=== PATIENT | female | born 1930 | race Caucasian/White ===

== ENCOUNTER 2017-09-05 10:53 | Inpatient (IN) | payer MEDICARE ==
[2017-09-05 11:37] LABS: Hematocrit 30.5 % (36.0-47.0); Mean Platelet Volume 6.7 fL (7.4-10.4); Red Blood Cell (RBC) Count 3.26 mill/uL (4.20-5.40); White Blood Cell (WBC) Count 19.9 thou/uL (4.8-10.8)
--- NOTE | 2017-09-05 11:48 | RAD ---
SINGLE VIEW OF THE CHEST: HISTORY: Left leg pain after fall. The patient was on a blood thinner during the fall. Hypotension. COMPARISON: 05/20/2017 FINDINGS: A single view of the chest shows a normal sized cardiomediastinal silhouette. There is no evidence of consolidation, mass, or pleural effusion. Increased interstitial markings are present. IMPRESSION: No evidence of acute cardiopulmonary disease. POS: [facility]
[2017-09-05 11:54] LABS: Band 1 % (5-11); Neutrophil 75 % (42-75)
[2017-09-05 11:59] LABS: ALT (SGPT) 12 U/L (8-55); AST (SGOT) 17 U/L (5-34); Alkaline Phosphatase 86 U/L (40-150); Anion Gap 12 mmol/L (10-20); BUN (Urea Nitrogen) 14 mg/dL (9.8-20.1); Bilirubin, Total 0.6 mg/dL (0.2-1.2); CK (CPK) 44 U/L (29-168); Calc. Creatinine Clearance 0 mL/min (70-130); Calcium 9.1 mg/dL (7.8-10.44); Carbon Dioxide 30 mmol/L (23-31); Chloride 100 mmol/L (98-107); Estimated GFR-MDRD 63; Globulin 3.6 g/dL (2.4-3.5); Protein, Total 7.2 g/dL (6.0-8.3)
[2017-09-05 12:05] LABS: Troponin I Less than 0.010 ng/mL (< 0.028)
[2017-09-05] MEDS ORDERED: Vancomycin HCl 1.25 GM in Sodium Chloride 0.9% 250 ML 250 ML IVPB SCH (12:15)
[2017-09-05 12:25] LABS: Lactic Acid - Sepsis 1.4 mmol/L (0.5-2.2)
[2017-09-05 12:48] LABS: Bilirubin Negative (Negative); Blood, Urine Large (Negative); Glucose, Urine (Dipstick) Negative (Negative); Ketone, Urine Negative (Negative); Nitrite Negative (Negative); Protein, Urine (Dipstick) Negative (Neg-Trace); Urobilinogen 0.2 mg/dL (0.2-1.0)
[2017-09-05 12:54] LABS: Bacteria/HPF 3+ HPF (None Seen); Hyaline Casts/LPF NONE SEEN LPF (0-3 Hyaline)
[2017-09-05] MEDS ORDERED: Piperacillin/Tazobactam 4.5 GM, Admixture Fee 1 EACH in Sodium Chloride 0.9% 100 ML IVPB SCH (13:00)
[2017-09-05] MEDS ORDERED: traMADol HCl 50 MG TAB ONE (13:10)
[2017-09-05] MEDS ORDERED: Adacel (T-DAP) 0.5 ML VIAL ONE (15:05)
[2017-09-05] MEDS ORDERED: Potassium Chloride 40 MEQ in Premix Bag 1 BAG IVPB SCH (15:30)
[2017-09-05] MEDS ORDERED: Potassium Chloride 40 MEQ in Sodium Chloride 0.9% 250 ML 250 ML IVPB SCH (15:45)
[2017-09-05 16:06] VITALS: BMI 33.9
[2017-09-05] MEDS ORDERED: traMADol HCl 50 MG TAB PO PRN (16:07)
[2017-09-05] MEDS: Sodium Chloride 0.9% 1,000 ML IV SCH ×2 (17:06→23:34)
--- NOTE | 2017-09-05 18:00 | RAD ---
FOUR VIEWS LEFT FORELEG 09/05/17 INDICATION: Left leg cellulitis. Rule out osteomyelitis. FINDINGS: There is diffuse osteopenia. No definite acute osseous abnormality is evident. Heterotopic ossificat ion seen adjacent to the Achilles insertion. There is prominent soft tissue swelling of the left for eleg. IMPRESSION: Diffuse osteopenia. No definite acute osseous abnormality. Enthesopathic changes seen adjacent to th e calcaneus as well as the fibular head. POS: [facility]
--- NOTE | 2017-09-05 18:06 | RAD ---
PORTABLE AP CHEST X-RAY 09/05/17 HISTORY: Sepsis. COMPARISON: 09/05/17 at 11:26 hours. FINDINGS: The cardiac silhouette and pulmonary vasculature are within normal limits for the portable technique of the study. Thoracic aorta is ectatic and partially calcified. Again noted is linear atelectasis versus scarring at each lung base; however, there is improved aeration at the right lung base sugges ting linear density on the right due to atelectasis. No pneumothorax or pleural effusion seen. There is osteopenia. No other interval change. IMPRESSION: 1. Atelectasis versus scarring left lung base. There is otherwise no acute cardiopulmonary proc ess. 2. Osteopenia. POS: [facility]
[2017-09-05] MEDS: Ondansetron ODT 4 MG TAB PO PRN (18:09)
--- NOTE | 2017-09-05 18:18 | ULT ---
ULTRASOUND OF THE SOFT TISSUES OF THE LEFT FORELE09/05/17 INDICATION: Cellulitis, rule out fluid collection. FINDINGS: There is a 2.3 x 0.8 cm heterogeneous nonvascular fluid collection in the subcutaneous tissues of th e anterior left foreleg. Adjacent to this region is an additional 2 x 1 cm collection. The findings are suspicious for small hematoma. Superimposed infection cannot be entirely excluded. IMPRESSION: Subcutaneous fluid collections within the anterior left calf and in the region of trauma suspicious for small hematomas. Superimposed infection cannot be entirely excluded. POS: [facility]
[2017-09-05] MEDS: Piperacillin/Tazobactam 3.375 GM in Sodium Chloride 0.9% 100 ML IVPB SCH (21:08)
[2017-09-05] MEDS: Vancomycin HCl 500 MG in Sodium Chloride 0.9% 100 ML IVPB SCH (23:35)
--- NOTE | 2017-09-06 00:14 | HP-2 ---
DATE OF CONSULTATION: 09/05/2017 CODE STATUS: FULL. PRIMARY CARE PHYSICIAN: Ragini Fisher MD ATTENDING: Maddie Givens MD RESIDENT: Ragini Fisher MD HISTORIAN: Patient. CHIEF COMPLAINT: Weakness. HISTORY OF PRESENT ILLNESS: Patient is an 87-year-old pleasant female with past medical history of hypertension and history of DVT, previously on Eliquis who presents with weakness. Patient states that she was sitting in her recliner a few days ago and her cat got caught in the middle of it and subsequently scratched her. She states that she has had worsening redness and some weeping of her left lower extremity. The patient does have home health and has been receiving wound care from her home health nurse. However, today the patient states that she became significantly more weak and hypotensive. Of note, the patient had a right common femoral DVT few months ago and was placed on Eliquis. The patient completed her 3-month course yesterday. She also endorses fevers that started today as well as decreased appetite. Denies any chills, night sweats, cough, congestion, shortness of breath, chest pain, nausea , vomiting, diarrhea, dysuria, or polyuria. In the ER, the patient was given Zosyn 4.5 grams IV, vancomycin 15 mcg/kg IV, 1 liter bolus of normal saline, tramadol 50 mg, normal saline 30 mL per hour. PAST MEDICAL HISTORY: 1. Hypertension (previously on lisinopril, but was stopped about 1 month ago). 2. Bilateral venous stasis. 3. History of right common femoral DVT and completed anticoagulation with Eliquis on 09/04/2017. 4. Right hip osteoarthritis. PAST SURGICAL HISTORY: 1. Right hip open reduction internal fixation. 2. Appendectomy. 3. Hysterectomy. 4. Tonsillectomy. ALLERGIES: No known drug allergies. MEDICATIONS: 1. Lasix 40 mg p.o. daily. 2. Vitamin D3 of 1000 units daily. 3. Tramadol 50 mg p.o. q.6 hours p.r.n. for pain. 4. Eliquis completed course on 09/04/2017. FAMILY HISTORY: Not significant. SOCIAL HISTORY: Ten pack year, but currently not smoking. Alcohol none. Drugs none. REVIEW OF SYSTEMS: A 12-point review of systems including general, eyes, ENT, respiratory, CV, GI, , skin, musculoskeletal, neuro and psych are all negative except for pertinent positives mentioned in the HPI. PHYSICAL EXAMINATION: VITAL SIGNS: Blood pressure 86/58, pulse 112, respiratory rate 20, temperature 101.5, pulse oximetry 97% on room air, weight 82 kg. GENERAL: Alert, oriented x4, in no apparent distress. Appropriately interactive. EYES: PERRLA, EOMI. ENT: Nasal mucosa normal. Oropharynx within normal. NECK: Supple. No lymphadenopathy. CARDIOVASCULAR: Regular rate and rhythm. 2/6 systolic murmur. Radial pulses 2 +. RESPIRATORY: Clear to auscultation bilaterally, normal effort. SKIN: A 22 x 16 cm erythema located at her left lower extremity with a small hematoma and slight fluctuance as well as multiple 2 mm abrasions from cat scratches. ABDOMEN: Soft, nontender to palpation. Bowel sounds x4. EXTREMITIES: No cyanosis. 1+ pitting edema bilaterally. MUSCULOSKELETAL: Structure within normal, tone within normal limits. NEUROLOGIC: No focal deficits. Sensation within normal. PSYCHIATRIC: Appropriate. LABORATORY AND IMAGING DATA: 1. White count 19.9, 1% band, 25% neutrophils, hemoglobin 9.9, hematocrit 30.5, MCV 93.6, platelets 386. 2. Sodium 139, potassium 3.2, chloride 100, bicarbonate 30, BUN 14, creatinine 0.85, glucose 117. 3. Calcium 9.1. Serum total protein 7.2, albumin 3.6, AST 17, ALT 12, alkaline phosphatase 86, total bilirubin 0.6. 4. CK 44, CK-MB 0.9, troponin less than 0.01. 5. UA specific gravity 1.02, blood large, leukocyte esterase large, nitrite negative, ketone negative, glucose negative, red blood cells 7-10, white blood cells 7-10, bacteria 3+, squamous 4-6. 6. EKG, sinus tachycardia. Chest x-ray, no acute process. ASSESSMENT AND PLAN: An 87-year-old female who presents with: 1. Severe sepsis secondary to left lower extremity cellulitis. Upon presentation to the ER, the patient was hypotensive with 86/58, tachycardic to 112, and febrile to 101.5. The patient was fluid resuscitated with 3 liter bolus of normal saline with improvement. Currently, patient's blood pressures in the low 100s, which is at her baseline. The patient was started on vancomycin and Zosyn for cellulitis and we will continue these antibiotics. Blood and urine cultures are pending. We will continue normal saline at 200 mL an hour. 2. Left lower extremity cellulitis with hematoma secondary to cat scratch. We will continue patient on Zosyn and we will continue vancomycin until blood cultures are negative. Of note, patient was given Tdap vaccine in the ER. We will obtain an ESR and x-ray of the left lower extremity and soft tissue ultrasound to rule out fluid collection/abscess and possible osteo. Of note, the patient has history of right DVT and on Eliquis, which is likely contributing to significant erythema and hematoma. 3. Hypokalemia. We will provide supplementation and monitor. 4. History of right deep venous thrombosis. Patient completed Eliquis and will not resume medication. 5. Hypertension. The patient is currently only on Lasix and was previously on lisinopril, but was discontinued a month ago. 6. Diet: Heart healthy. 7. Prophylaxis. Lovenox. 8. Code status: FULL. DISPOSITION AND LENGTH OF HOSPITAL STAY: More than 2 midnights. Symptomatic medications will be provided. History and physical exam as well as management discussed with Dr. Givens. [facility]
[2017-09-06] MEDS ORDERED: Vancomycin HCl 1.25 GM in Sodium Chloride 0.9% 250 ML 250 ML IVPB SCH (01:30)
[2017-09-06] MEDS: Piperacillin/Tazobactam 3.375 GM in Sodium Chloride 0.9% 100 ML IVPB SCH ×4 (02:13→20:19)
[2017-09-06] MEDS: Sodium Chloride 0.9% 1,000 ML IV SCH ×4 (02:13→20:23)
[2017-09-06 05:55] LABS: Band 1 % (5-11); Hematocrit 23.9 % (36.0-47.0); Mean Platelet Volume 7.3 fL (7.4-10.4); Neutrophil 76 % (42-75); Red Blood Cell (RBC) Count 2.51 mill/uL (4.20-5.40); White Blood Cell (WBC) Count 8.9 thou/uL (4.8-10.8)
[2017-09-06 06:39] LABS: Anion Gap 14 mmol/L (10-20); BUN (Urea Nitrogen) 10 mg/dL (9.8-20.1); Calc. Creatinine Clearance 78 mL/min (70-130); Calcium 7.3 mg/dL (7.8-10.44); Carbon Dioxide 19 mmol/L (23-31); Chloride 110 mmol/L (98-107); Estimated GFR-MDRD 73
--- NOTE | 2017-09-06 08:42 | PDOC.FM ---
- Subjective Subjective: Pt reports doing better this morning. Says she is eating. Denies any nausea, vomiting, diarrhea, constipation. Denies any fevers or chills overnight. Reports pain doing better in her L. leg. No other acute events overnight. - Objective MAR Reviewed: Yes Vital Signs & Weight: Vital Signs (12 hours) Temp Pulse Resp BP Pulse Ox 09/06/17 08:00 98.2 F 81 20 95 09/06/17 07:50 98.2 F 81 20 90/59 L 95 09/06/17 04:00 98.3 F 80 18 93/55 L 94 L 09/06/17 00:00 98.1 F 81 20 91/56 L 99 Weight Weight 95.254 kg I&O: 09/05/17 09/06/17 09/07/17 06:59 06:59 06:59 Intake Total 220 Balance 220 Result Diagrams: 09/06/17 04:38 09/06/17 04:38 Radiology Reviewed by me: Yes Radiology: Soft Tissue U/S: subq fluid collection w/ anterior L. calf and in the region of trauma suspicious for small hematomas. Superimposed infection cannot be entirely excluded. - <Hector Arzola - Last Filed: 09/06/17 08:41> - Objective Vital Signs & Weight: Vital Signs (12 hours) Temp Pulse Resp BP Pulse Ox 09/06/17 08:00 98.2 F 81 20 95 09/06/17 07:50 98.2 F 81 20 90/59 L 95 09/06/17 04:00 98.3 F 80 18 93/55 L 94 L 09/06/17 00:00 98.1 F 81 20 91/56 L 99 Weight Weight 210 lb I&O: 09/05/17 09/06/17 09/07/17 06:59 06:59 06:59 Intake Total 220 Balance 220 Result Diagrams: 09/06/17 04:38 09/06/17 04:38 <Laurent Mancia - Last Filed: 09/06/17 10:47> Phys Exam - Physical Examination HEENT: moist MMs, oral pharynx no lesions Neck: no nodes, no JVD Respiratory: no wheezing, no rales, no rhonchi, clear to auscultation bilateral Cardiovascular: RRR, no significant murmur, no rub Gastrointestinal: soft, non-tender, no distention, positive bowel sounds Musculoskeletal: pulses present, edema present Edema in both LE. non pitting. Non painful to palpation Redness regressing in L. leg. bloody drainage noted from wound sites Neurological: non-focal, normal sensation Lymphatic: no nodes Psychiatric: normal affect, A&O x 3 Skin: no rash Deviation from normal: Redness and venostastasis noted in LE. L. leg mildly swollen <Hector Arzola - Last Filed: 09/06/17 08:41> Dx/Plan (1) Cellulitis of leg, left Code(s): L03.116 - CELLULITIS OF LEFT LOWER LIMB Status: Acute Plan: Due to cat scratch. Will await blood cx. Will continue on IV abx for now. Blood cx-NGTD Urine cx-prelim shows Gram Negative Portillo. Will await sensitivities -On vanc and zosyn for now. Cellulitis improving -WBC count down to 8.9. Will continue to follow with CBC -ESR and Lactic Acid normal -Vital signs stable. No fevers overnight. (2) HTN (hypertension) Code(s): I10 - ESSENTIAL (PRIMARY) HYPERTENSION Status: Acute Plan: Lasix being held at this time. BP stable, A little low. (3) Hypokalemia Code(s): E87.6 - HYPOKALEMIA Status: Acute Plan: K Improved to 3.6 today -Will continue to monitor with daily bmp and replace as needed. <Hector Arzola - Last Filed: 09/06/17 08:41> Attending Addendum - Attending Addendum I personally evaluated the patient and discussed the management with Dr. Arzola I agree with the History, Examination, Assessment and Plan documented above with any addition or exceptions noted below. Pleasant 87 year old with cellulitis in her left leg after a cat scratch. She is responding to Vancomycin and Zosyn. Redness and swelling are better. She does not have adenopathy in her groin. We will check a Borrelia serology as well to make sure she doesn't need doxycycline. <Laurent Mancia - Last Filed: 09/06/17 10:47>
[2017-09-06] MEDS: Enoxaparin Sodium 40 MG/0.4 ML SYRINGE SC SCH (09:24)
[2017-09-06] MEDS: Vancomycin HCl 500 MG in Sodium Chloride 0.9% 100 ML IVPB SCH (12:24)
[2017-09-06] MEDS: Ondansetron ODT 4 MG TAB PO PRN (17:31)
[2017-09-07 00:11] LABS: Vancomycin, Trough 8.3 ug/mL
[2017-09-07] MEDS ORDERED: Vancomycin HCl 1.25 GM in Sodium Chloride 0.9% 250 ML 250 ML IVPB SCH (01:00)
[2017-09-07] MEDS: Vancomycin HCl 500 MG in Sodium Chloride 0.9% 100 ML IVPB SCH (01:21)
[2017-09-07] MEDS: Piperacillin/Tazobactam 3.375 GM in Sodium Chloride 0.9% 100 ML IVPB SCH ×2 (01:30→08:29)
[2017-09-07] MEDS: Sodium Chloride 0.9% 1,000 ML IV SCH (04:54)
[2017-09-07 05:43] LABS: Mean Platelet Volume 6.8 fL (7.4-10.4); Red Blood Cell (RBC) Count 2.63 mill/uL (4.20-5.40); White Blood Cell (WBC) Count 7.9 thou/uL (4.8-10.8)
[2017-09-07 05:48] LABS: Band 3 % (5-11); Neutrophil 72 % (42-75)
[2017-09-07 05:51] LABS: Anion Gap 10 mmol/L (10-20); BUN (Urea Nitrogen) 6 mg/dL (9.8-20.1); Calc. Creatinine Clearance 87 mL/min (70-130); Calcium 7.8 mg/dL (7.8-10.44); Carbon Dioxide 19 mmol/L (23-31); Chloride 113 mmol/L (98-107); Estimated GFR-MDRD 83
[2017-09-07] MEDS ORDERED: Potassium Chloride 20 MEQ TAB PO SCH (06:30)
--- NOTE | 2017-09-07 08:03 | PQF ---
CLINICAL DOCUMENTATION IMPROVEMENT CLARIFICATION FORM: ICD-10 Updated PLEASE DO AN ADDENDUM TO THE PROGRESS NOTE WITH ANY DOCUMENTATION UPDATES OR ADDITIONS AND CARRY THROUGH TO DC SUMMARY. THANK YOU. DATE: 09/07 ATTN: DR. LUIS EDUARDO GODFREY/ DR. MICHELLE KAISER Please exercise your independent, professional judgment in responding to the clarification form. Clinical indicators are provided on the bottom of this form for your review Please check appropriate box(s): [ x] Associated Diagnosis: __Antibiotics for cellulits cover UTI [ ] Other diagnosis [ ] Unable to determine In addition, please specify: Present on Admission (POA): [ ] Yes [ ] No [ ] Unable to determine For continuity of documentation, please document condition throughout progress notes and discharge summary. Thank You. CLINICAL INDICATORS - SIGNS / SYMPTOMS/ LABS are present in the medical record: URINALYSIS 09/05: LARGE BLOOD, LARGE LEUKOCYTE ESTERASE, WBC 7-10, 3+ BACTERIA URINE CULTURE: E COLI RISK FACTORS: ADVANCED AGE INCONTINENT (WEARS DIAPERS) TREATMENT: IV ANTIBIOTICS FOR LLE CELLULITIS (VANCOMYCIN & ZOSYN 09/05 - PRESENT) IVF (NS 09/05 - PRESENT) THANK YOU! Liya (This form is maintained as a part of the permanent medical record) 2014 [employer]. All Rights Reserved Liya Ayala RN, BSN [email or web address] Office: [phone] [facility]
--- NOTE | 2017-09-07 08:57 | PDOC.FM ---
- Subjective Subjective: Pt doing alright this morning. States she did not feel as well yesterday. Denies fevers and chills. Says she wasn't able to eat her breakfast this morning. Says she has been getting up with PT. She is tolerating abx - Objective Vital Signs & Weight: Vital Signs (12 hours) Temp Pulse Resp BP Pulse Ox 09/07/17 07:27 98.1 F 91 16 135/83 99 09/07/17 04:35 98.2 F 99 18 121/80 98 09/07/17 00:24 97.9 F 99 22 H 139/88 98 Weight Admit Weight 95.254 kg Weight 95.254 kg I&O: 09/06/17 09/07/17 09/08/17 06:59 06:59 06:59 Intake Total 220 2120 Balance 220 2120 Result Diagrams: 09/07/17 04:48 09/07/17 04:48 Radiology Reviewed by me: Yes Radiology: Soft Tissue U/S: subq fluid collection w/ anterior L. calf and in the region of trauma suspicious for small hematomas. Superimposed infection cannot be entirely excluded. - <Hector Arzola - Last Filed: 09/07/17 08:59> - Objective Vital Signs & Weight: Vital Signs (12 hours) Temp Pulse Resp BP Pulse Ox 09/07/17 07:27 98.1 F 91 16 135/83 99 09/07/17 04:35 98.2 F 99 18 121/80 98 09/07/17 00:24 97.9 F 99 22 H 139/88 98 Weight Admit Weight 210 lb Weight 210 lb I&O: 09/06/17 09/07/17 09/08/17 06:59 06:59 06:59 Intake Total 220 2120 Balance 220 2120 Result Diagrams: 09/07/17 04:48 09/07/17 04:48 <Laurent Mancia - Last Filed: 09/07/17 11:22> Phys Exam - Physical Examination HEENT: PERRLA, moist MMs Neck: no nodes, supple Respiratory: no wheezing, no rales, no rhonchi, clear to auscultation bilateral Cardiovascular: RRR, no significant murmur Gastrointestinal: soft, non-tender, no distention, positive bowel sounds Chronic edema noted in both legs bilaterally Wound is well dressed at this time. No drainage. Swelling improved Neurological: non-focal, normal sensation Psychiatric: normal affect, A&O x 3 Skin: no rash <Hector Arzola - Last Filed: 09/07/17 08:59> Dx/Plan (1) Cellulitis of leg, left Code(s): L03.116 - CELLULITIS OF LEFT LOWER LIMB Status: Acute Plan: Due to cat scratch. Will await blood cx. Will continue on IV abx for now. Bartonella Ab panel pending Blood cx-NGTD Urine cx-prelim shows Gram Negative Portillo. sensitive to current abx regimen -On vanc and zosyn for now. Cellulitis improving -WBC count down to 7.9. Will continue to follow with CBC -ESR and Lactic Acid normal -Vital signs stable. No fevers overnight. -Will possibly switch to oral abx today once cultures grow for 48 hours. Pt ill yesterday. Somewhat weak. Will plan on keeping her today to continue to monitor and work with PT (2) HTN (hypertension) Code(s): I10 - ESSENTIAL (PRIMARY) HYPERTENSION Status: Acute Plan: Lasix being held at this time. BP stable. (3) Hypokalemia Code(s): E87.6 - HYPOKALEMIA Status: Acute Plan: K 3.4 today -Replaced today and will continue to monitor <Hector Arzola - Last Filed: 09/07/17 08:59> Attending Addendum - Attending Addendum I personally evaluated the patient and discussed the management with Dr. Arzola I agree with the History, Examination, Assessment and Plan documented above with any addition or exceptions noted below. Her leg is better. We plan to start oral antibiotics today for this and her E. Coli UTI. She is complaining of shortness of breath and probably is fluid overloaded. She likely has some diastolic dysfunction and didn't tolerate the fluids. We are stopping her IV and will give her a one time dose of Lasix. <Laurent Mancia - Last Filed: 09/07/17 11:22>
[2017-09-07] MEDS ORDERED: Vancomycin HCl 1 GM in Premix Bag 1 BAG IVPB SCH (09:00)
[2017-09-07] MEDS ORDERED: Acetaminophen 325 MG TAB PO SCH (09:15)
[2017-09-07] MEDS: Enoxaparin Sodium 40 MG/0.4 ML SYRINGE SC SCH (10:02)
[2017-09-07] MEDS: Ondansetron ODT 4 MG TAB PO PRN (12:43)
[2017-09-07] MEDS ORDERED: Furosemide 40 MG/4 ML VIAL SLOW IVP SCH (14:00)
[2017-09-07] MEDS: Cephalexin 250 MG CAP PO SCH (20:22)
[2017-09-07] MEDS: Doxycycline 100 MG CAP PO SCH (20:22)
[2017-09-08 05:32] LABS: Anion Gap 9 mmol/L (10-20); BUN (Urea Nitrogen) Less than 4 mg/dL (9.8-20.1); Calc. Creatinine Clearance 91 mL/min (70-130); Calcium 8.5 mg/dL (7.8-10.44); Carbon Dioxide 26 mmol/L (23-31); Chloride 108 mmol/L (98-107); Estimated GFR-MDRD 88
[2017-09-08 05:42] LABS: Hematocrit 26.7 % (36.0-47.0); Mean Platelet Volume 6.6 fL (7.4-10.4); Neutrophil 76 % (42-75); Red Blood Cell (RBC) Count 2.88 mill/uL (4.20-5.40); White Blood Cell (WBC) Count 8.9 thou/uL (4.8-10.8)
[2017-09-08] MEDS ORDERED: Potassium Chloride 20 MEQ TAB PO SCH (06:15)
--- NOTE | 2017-09-08 07:05 | PDOC.FM ---
- Subjective Subjective: Pt doing better this morning. Only reports having a cough yesterday and now just having an irritated throat. Denies any fevers, chills. Denies any nausea or vomiting. Denies any other sx's at this time. - Objective MAR Reviewed: Yes Vital Signs & Weight: Vital Signs (12 hours) Temp Pulse Resp BP Pulse Ox 09/08/17 04:00 98.1 F 91 18 135/82 96 09/08/17 00:00 98.3 F 96 18 142/107 H 97 09/07/17 20:00 97.8 F 93 16 99 Weight Admit Weight 95.254 kg Weight 95.254 kg I&O: 09/07/17 09/08/17 09/09/17 06:59 06:59 06:59 Intake Total 2119 1400 Balance 2119 1400 Result Diagrams: 09/08/17 04:35 09/08/17 04:35 Radiology Reviewed by me: Yes (No new images ) <Hector Arzola - Last Filed: 09/08/17 07:03> - Objective Vital Signs & Weight: Vital Signs (12 hours) Temp Pulse Resp BP Pulse Ox 09/08/17 07:45 98.5 F 101 H 20 155/94 H 91 L 09/08/17 04:00 98.1 F 91 18 135/82 96 09/08/17 00:00 98.3 F 96 18 142/107 H 97 Weight Admit Weight 210 lb Weight 210 lb I&O: 09/07/17 09/08/17 09/09/17 06:59 06:59 06:59 Intake Total 2119 1400 Balance 2119 1400 Result Diagrams: 09/08/17 04:35 09/08/17 04:35 <Laurent Mancia - Last Filed: 09/08/17 11:04> Phys Exam - Physical Examination HEENT: PERRLA, moist MMs, oral pharynx no lesions Neck: no nodes, supple Respiratory: no wheezing, no rales, no rhonchi, clear to auscultation bilateral Cardiovascular: RRR, no significant murmur, no rub Gastrointestinal: soft, non-tender, no distention, positive bowel sounds Musculoskeletal: pulses present Non pitting edema present. Wound dressed at this time. No excessive drainage noted. Neurological: non-focal, normal sensation Psychiatric: normal affect, A&O x 3 Skin: no rash <Hector Arzola - Last Filed: 09/08/17 07:03> Dx/Plan (1) Cellulitis of leg, left Code(s): L03.116 - CELLULITIS OF LEFT LOWER LIMB Status: Acute Plan: Due to cat scratch. Will await blood cx. Will continue on IV abx for now. Bartonella Ab panel pending Blood cx-NGTD for 48 hrs Urine cx-prelim shows Gram Negative Portillo. sensitive to current abx regimen -D/C vanc and zosyn yesterday. Switched to Keflex and Doxycycline for MRSA coverage. Cellulitis improving -WBC resolved. Will continue to follow with CBC -ESR and Lactic Acid normal -Vital signs stable. No fevers overnight. -Pt feeling better today and likely ready to go home today. -Pt reports cough last night. Will give tessalon perles for relief. (2) HTN (hypertension) Code(s): I10 - ESSENTIAL (PRIMARY) HYPERTENSION Status: Acute Plan: Lasix restarted yesterday BP stable. (3) Hypokalemia Code(s): E87.6 - HYPOKALEMIA Status: Acute Plan: K 3.4 today -Replaced today and will continue to monitor <Hector Arzola - Last Filed: 09/08/17 07:03> Attending Addendum - Attending Addendum I personally evaluated the patient and discussed the management with Dr. Arzola I agree with the History, Examination, Assessment and Plan documented above with any addition or exceptions noted below. Patient is doing well today. She had some fluid overload yesterday which resolved after Lasix. He leg looks good. We are sending her home today on doxycycline and cephazolin. FU in clinic with Dr. Fisher. <Laurent Mancia - Last Filed: 09/08/17 11:04>
[2017-09-08] MEDS ORDERED: Benzonatate 100 MG CAP PO PRN (07:08)
[2017-09-08 08:24] LABS: Vancomycin, Trough 11.4 ug/mL
[2017-09-08] MEDS ORDERED: Furosemide 40 MG/4 ML VIAL SLOW IVP SCH (09:00)
[2017-09-08] MEDS ORDERED: Furosemide 20 MG TAB PO SCH (09:00)
[2017-09-08] MEDS: Cephalexin 250 MG CAP PO SCH (09:08)
[2017-09-08] MEDS: Enoxaparin Sodium 40 MG/0.4 ML SYRINGE SC SCH (09:08)
[2017-09-08] MEDS: Doxycycline 100 MG CAP PO SCH (09:08)
[2017-09-08 11:56] VITALS: BP 132/84; TEMP 98.6
--- NOTE | 2017-09-10 10:21 | DIS-2 ---
DATE OF ADMISSION: 09/05/2017 DATE OF DISCHARGE: 09/08/2017 RESIDENT: Hector Arzola M.D., PGY-1 ADMITTING ATTENDING: Maddie Givens M.D. DISCHARGE ATTENDING: Laurent Mancia M.D. CONSULTATIONS: The Wound Care team was consulted. PROCEDURES: None. IMAGIN. She got a chest x-ray on 09/05/2017, which showed no evidence of acute cardiopulmonary disease. She got a repeat chest x-ray on 09/05/2017, which showed atelectasis versus scarring in the left don ng base. There is otherwise no acute cardiopulmonary process. 2. Osteopenia on 09/05/2017, she had a soft tissue ultrasound which showed subcu fluid collections within the anterior left calf and in the region of trauma suspicious for small hematoma superimposed infection cannot be entirely excluded, and then she also got a tibia and fibula x-ray on the , d iffuse osteopenia, no definite acute osseous abnormality and enthesopathic changes seen adjacent to the calcaneus as well as the fibular head. PRIMARY DIAGNOSES: 1. Left leg lower cellulitis with drainage. 2. Hypertension. 3. Hypokalemia. 4. She had severe sepsis secondary to the left lower extremity cellulitis with a hematoma. SECONDARY DIAGNOSIS: She has had a history of right deep vein thrombosis and completed her course o f Eliquis. DISCONTINUED MEDICATIONS: Vancomycin and Zosyn and Zofran. DISCHARGE MEDICATIONS: Keflex 500 mg p.o. q.12 hours and doxycycline 100 mg p.o. b.i.d., and furose mide 20 mg p.o. daily, and tramadol 1 to 2 tabs p.o. q.i.d. HISTORY OF PRESENT ILLNESS AND BRIEF HOSPITAL COURSE: This is an 87-year-old female who came in sta ting that she got stuck in her recliner ended up scratching her on the leg. She started noticing re dness and swelling in the left lower extremity. She does have home health and was receiving wound c are, but however, the patient kept getting more weak, reported having chills the day before admissio n and stating that she was having some nausea as well. She denied any fevers. She did report that she was also having decreased appetite. Upon presentation in the ER, the patient was hypotensive wi th a blood pressure of 86/58, tachycardic to 112 and febrile 101.5. The patient was resuscitated wi th 3 liters of fluid bolus, which helped her blood pressures improved to the low 100s, which was her baseline. We then started on vancomycin and Zosyn for the cellulitis and continued these antibioti cs for the next few days. Blood and urine cultures were obtained. Blood cultures never grew out an ything; no growth to date for 48 hours. Urine culture did grow out E. coli which was sensitive to Z osyn and then further sensitive to cephalosporins. Upon discharge, her UA showed a large leukocyte esterase, 7-10 white blood cells and 3+ bacteria. On admission, her white blood cell count was 19.9 . Her hemoglobin was 9.9 and would kind of trend down and up from 7.9 to 8.0 to 8.4 after receiving fluids. On chemistry, her potassium was low on admission at 3.2 and we continued to replace it. W e got to 3.6 on the , 3.4 on the , and 3.4 on the , we continued to replace once daily at 40 mEq. Her lactic acid upon admission was 1.4 and we also got Bartonella henselae and mccain pa yadira which eventually grew out negative. During this time, we admitted her, Wound Care was consulte d and continued to help treat and debride the wound. The cellulitis continued to improve. It had s ome purulent drainage and a significant amount of drainage on the first day, but then after antibiot ics on the and the , the drainage was minimal. Per Wound Care on the day of discharge, she noted that she was able to put a Q-tip in between the puncture wounds and the skin. She mentioned that likely the skin there would . She packed it with some iodine packing and stated that she wo uld need to follow up with Wound Care. She is set up with home health and they do have wound care a nd we will follow up there. During her visit as well she was afebrile except for upon admission. Tyshawn nuñez continued her fluids after getting 3 boluses. We continued fluids at a rate of 200 for the next d ay and then we got fluids at a rate of 200 mL per hour for the first day and then kept at a rate of 125 mL per hour for the next day. On the , we came in she reported kind of being a little stick to her stomach and having been a little short of breath. She normally would take Lasix 20 mEq at h ome, likely and she probably has some underlying diastolic heart failure that has not been worked up . At this time, we decided to stop the fluids. We gave her one IV dose of 40 mg of Lasix would jeyson p her overnight as she was feeling a little bit ill. The next day, the day of discharge, she is fee ling much better. Breathing had improved. We continued her home dose of Lasix. The patient stated that she was ready to go home with home health. She continued working with PT and was doing well t here, said pain was doing much better, was getting up and tolerated diet well. At this time, she wa s discharged. DISPOSITION: Stable. DISCHARGE INSTRUCTIONS: 1. Location: Home. 2. Diet: Regular diet. 3. Activity: Activity as tolerated. 4. Followup: She will need to follow up with her primary care provider within the next week, Dr. Reyna velez. Follow up with improvement of cellulitis to make sure no debridement or any other wound care is needed at this time.
== END 2017-09-08 13:49 | disposition home health service (06) | DRG 872 ==
LOC: ERS 10:53 → T4-B 13:38
PROVIDERS: ADMIT Internal Medicine; ATTEND Internal Medicine
DX: A41.9 Sepsis, unspecified organism (principal); I95.9 Hypotension, unspecified; L03.116 Cellulitis of left lower limb; N39.0 Urinary tract infection, site not specified; R65.20 Severe sepsis without septic shock; I10 Essential (primary) hypertension; B96.20 Unspecified Escherichia coli [E. coli] as the cause of diseases classified elsewhere; Z87.891 Personal history of nicotine dependence; Z86.718 Personal history of other venous thrombosis and embolism; Z79.01 Long term (current) use of anticoagulants; Z90.710 Acquired absence of both cervix and uterus; S80.12XA Contusion of left lower leg, initial encounter; S80.812A Abrasion, left lower leg, initial encounter
CPT/HCPCS: 36415; 71010; 76999; 80048; 80053; 80202; 81003; 81015; 82550; 82553; 83605; 84484; 85007; 85025; 85027; 85652; 86611; 87040; 87077; 87086; 87186; 90471; 90715; 93005; 94760; 96365; 96367; A4216; A4353; G8978-GP-CK; G8979-GP-CI; G8987-GO-CK; G8988-GO-CI; J1650; J1940; J2543; J3370; J3480; J7050; Q0162

== ENCOUNTER 2017-09-30 10:22 | Inpatient (IN) | payer MEDICARE ==
[2017-09-30 11:27] LABS: #Basophils 0.2 thou/uL (0.0-0.2); #Eosinphils 0.1 thou/uL (0.0-0.7); #Lymphocytes 1.6 thou/uL (1.20-3.40); #Monocytes 0.7 thou/uL (0.11-0.59); #Neutrophils 6.2 thou/uL (1.40-6.50); %Basophils 2.3 % (0.0-1.0); %Eosinophils 1.5 % (0.0-10.0); %Lymphocytes 17.8 % (21.0-51.0); %Monocytes 8.4 % (0.0-10.0); Hematocrit 33.8 % (36.0-47.0); Mean Platelet Volume 6.5 fL (7.4-10.4); Red Blood Cell (RBC) Count 4.04 mill/uL (4.20-5.40); White Blood Cell (WBC) Count 8.8 thou/uL (4.8-10.8)
[2017-09-30 11:29] LABS: Bilirubin Negative (Negative); Blood, Urine Trace (Negative); Glucose, Urine (Dipstick) Negative (Negative); Ketone, Urine Negative (Negative); Nitrite Negative (Negative); Protein, Urine (Dipstick) Negative (Neg-Trace); Urobilinogen 0.2 mg/dL (0.2-1.0)
[2017-09-30 11:35] LABS: Bacteria/HPF 1+ HPF (None Seen); RBC/HPF 0-3 HPF (0-3); Squamous Epithelial 0-3 HPF (0-3); WBC/HPF 0-3 HPF (0-3); Yeast-All Forms Rare HPF (None Seen)
[2017-09-30 11:41] LABS: ALT (SGPT) 11 U/L (8-55); AST (SGOT) 17 U/L (5-34); Alkaline Phosphatase 68 U/L (40-150); Anion Gap 15 mmol/L (10-20); BUN (Urea Nitrogen) 17 mg/dL (9.8-20.1); Bilirubin, Total 0.5 mg/dL (0.2-1.2); Calc. Creatinine Clearance 0 mL/min (70-130); Calcium 9.2 mg/dL (7.8-10.44); Carbon Dioxide 32 mmol/L (23-31); Chloride 100 mmol/L (98-107); Estimated GFR-MDRD 52; Globulin 3.3 g/dL (2.4-3.5); Protein, Total 6.9 g/dL (6.0-8.3)
[2017-09-30] MEDS ORDERED: cefTRIAXone\\ROCEPHIN 1 GM VIAL ONE (12:47)
[2017-09-30] MEDS ORDERED: Potassium Chloride 20 MEQ TAB ONE (12:47)
[2017-09-30] MEDS ORDERED: Sodium Chloride 0.9% 100 ML ONE (12:49)
[2017-09-30] MEDS ORDERED: Ondansetron HCl/PF 4 MG/2 ML Vial IVP PRN (15:02)
[2017-09-30] MEDS ORDERED: Sodium Chloride 0.9% 1,000 ML IV SCH (15:02)
[2017-09-30] MEDS ORDERED: Ondansetron ODT 4 MG TAB SL PRN (15:02)
--- NOTE | 2017-09-30 15:30 | CT ---
CT BRAIN PERFORMED WITHOUT CONTRAST ENHANCEMENT: History: Altered mental status. FINDINGS: There is generalized ventricular and sulcal prominence with decreased attenuation of the periventricu lar white matter. There are no signs of intracerebral hemorrhage or extraaxial fluid collections. Mas toid air cells and visualized sinuses are clear. IMPRESSION: No acute intracranial abnormalities. POS: [facility]
[2017-09-30 15:47] VITALS: BMI 29.0
[2017-09-30] MEDS ORDERED: Milk Of Magnesia 30 ML UDCUP PO PRN (17:14)
[2017-09-30] MEDS ORDERED: Acetaminophen 325 MG TAB PO PRN (17:14)
[2017-09-30] MEDS ORDERED: Potassium Chloride 20 MEQ TAB PO SCH (17:30)
--- NOTE | 2017-09-30 17:57 | HP ---
DATE OF ADMISSION: 09/30/2017 PRIMARY CARE PHYSICIAN: Ragini Fisher MD. ADMITTING PHYSICIAN: Rafi Last M.D. CHIEF COMPLAINT: Altered mental status and weakness. HISTORY OF PRESENT ILLNESS: The patient is a pleasant 87-year-old female with history of hypertensio n and mild dementia as well as hypertension. The patient presents with complaints of weakness and lo ss of appetite for 3-4 days. The patient normally lives alone, but has recently had difficulty with her mental status as well as ADLs. The patient uses a wheelchair at home and occasionally a walker. She does have a history of multiple UTIs in the past 6 months. She was also recently hospitalized w ith the skin infection in the left lower extremity. The patient reports that she has not had a great appetite and has not drunk many fluids within the last few days. She does deny fever, chills, chest pain, any other review of systems. REVIEW OF SYSTEMS: The following complete review of systems was negative, unless otherwise mentioned in the HPI or below: Constitutional: Weight loss or gain, sense of well-being, ability to conduct usual activities, exercise tolerance. Skin/Breast: Rash, itching, changes in hair growth or loss, n ail changes, breast lumps, tenderness, swelling, nipple discharge. Eyes: Vision, double vision, tea ring, blind spots, pain. ENT/Mouth: Headaches (location, time of onset, duration, precipitating fac tors), vertigo, lightheadedness, injury. Vision, double vision, tearing, blind spots, pain, nose blee ding, colds, obstruction, discharge, dental difficulties, gingival bleeding, dentures, neck stiffness , pain, tenderness, masses in thyroid or other areas. Cardiovascular: Precordial pain, substernal di stress, palpitations, syncope, dyspnea on exertion, orthopnea, nocturnal paroxysmal dyspnea, edema, c yanosis, hypertension, heart murmurs, varicosities, phlebitis, claudication. Respiratory: Pain, gay rtness of breath, wheezing, stridor, cough, hemoptysis, fever or night sweats. Gastrointestinal: Po or appetite, dysphagia, indigestion, abdominal pain, heartburn, eructation, nausea, vomiting, hematem esis, jaundice, constipation, or diarrhea, abnormal stools (drake-colored, tarry, bloody, greasy, foul smelling), flatulence, hemorrhoids, recent changes in bowel habits. Genitourinary: Urgency, freque ncy, dysuria, nocturia, hematuria, polyuria, oliguria, unusual (or change in) color of urine, stones, hesitancy, change in size of stream, dribbling, acute retention or incontinence, libido, potency. M usculoskeletal: Pain, swelling, redness or heat of muscles or joints, limitation, of motion, muscula r weakness, atrophy, cramps. Neurologic/Psychiatric: Convulsions, paralyses, tremor, incoordination, parasthesias, difficulties with memory of speech, sensory or motor disturbances, or muscular coordin ation (ataxia, tremor), emotional problems, anxiety, depression, previous psychiatric care, unusual p erceptions, hallucinations. Allergy/Immunologic: Skin rash, anemia, bleeding tendency, polydipsia, polyuria, intolerance to heat or cold. PAST MEDICAL HISTORY: Significant for hypertension, mild dementia, recent cellulitis. PAST SURGICAL HISTORY: Significant for appendectomy, right hip procedure, hysterectomy, tonsillectom y, right femur fracture. SOCIAL HISTORY: She lives alone, drinks socially. Denies drugs, denies smoking. HOME MEDICATIONS: Include Lasix 20 mg once a day. ALLERGIES: No known drug allergies. PHYSICAL EXAMINATION: VITAL SIGNS: Temperature 98.2, blood pressure 136/70, pulse 85, respirations 18, satting 98% on room air. GENERAL: She is in no apparent distress, nontoxic, afebrile. HEAD: Normocephalic, atraumatic. EYES: PERRL. Extraocular muscles intact. ENT: The nose exam is normal. Septum is midline. NECK: Full range of motion. Supple. RESPIRATORY: No rales, no wheezing, no rhonchi. Clear to auscultation bilaterally. CARDIOVASCULAR: Regular rate and rhythm. There is a grade 2/6 systolic ejection murmur. ABDOMEN: Soft, nontender, no rebound or guarding. Positive bowel sounds. EXTREMITIES: No clubbing or cyanosis, trace edema. There is a wound with dressing in the left preti bial area. NEUROLOGIC: No focal deficits. She is oriented to person. She cannot recite the city or president, but she does not know the year. LABORATORY DATA AND IMAGES: Brain CT shows no acute disease. Urinalysis is yellow, slightly cloudy with trace blood, moderate leukocyte esterase, 1+ bacteria. CMP shows sodium of 144, potassium 3.2, chloride 100, CO2 32, BUN 17, creatinine 1.01, glucose 105, AST 17, ALT 11, CK-MB of 0.8, troponin I of 0.01. Albumin of 3.6. CBC shows a white count of 8.8, hemoglobin 10.5, hematocrit 33.8, and plat elets 316. ASSESSMENT AND PLAN: 1. Urinary tract infection. 2. Altered mental status. 3. Hypertension. 4. Hypokalemia. We will replete this orally. PLAN: The patient will be treated empirically with IV ceftriaxone. Urine cultures have been done. We will alter therapy based upon cultures and sensitivities. The patient will be encouraged to incre ase p.o. intake. If this fails, we will add supplements and possibly IV fluid resuscitation. Estimated length of stay 2-3 days.
[2017-10-01 05:37] LABS: #Eosinphils 0.3 thou/uL (0.0-0.7); #Lymphocytes 1.7 thou/uL (1.20-3.40); #Monocytes 0.8 thou/uL (0.11-0.59); #Neutrophils 4.4 thou/uL (1.40-6.50); %Basophils 0.5 % (0.0-1.0); %Eosinophils 3.9 % (0.0-10.0); %Lymphocytes 23.1 % (21.0-51.0); %Monocytes 11.4 % (0.0-10.0); Hematocrit 32.2 % (36.0-47.0); Mean Platelet Volume 8.3 fL (7.4-10.4); Red Blood Cell (RBC) Count 3.73 mill/uL (4.20-5.40); White Blood Cell (WBC) Count 7.3 thou/uL (4.8-10.8)
[2017-10-01 05:52] LABS: Anion Gap 11 mmol/L (10-20); BUN (Urea Nitrogen) 14 mg/dL (9.8-20.1); Calc. Creatinine Clearance 58 mL/min (70-130); Calcium 8.4 mg/dL (7.8-10.44); Carbon Dioxide 29 mmol/L (23-31); Chloride 105 mmol/L (98-107); Estimated GFR-MDRD 58
[2017-10-01] MEDS ORDERED: Diabetic Tussin 200 MG/10 ML UDCUP PO PRN (07:27)
[2017-10-01] MEDS ORDERED: Ondansetron HCl/PF 4 MG/2 ML Vial IVP PRN (07:27)
[2017-10-01] MEDS ORDERED: Loratadine 10 MG TAB PO PRN (07:27)
[2017-10-01] MEDS ORDERED: HYDROcodone/Acetaminophen 5/325 mg Tablet PO PRN (07:27)
[2017-10-01] MEDS ORDERED: Loperamide HCl 2 MG CAP PO PRN (07:27)
[2017-10-01] MEDS ORDERED: Artificial Tears 18 DROP/0.9 ML EA EYE PRN (07:27)
[2017-10-01] MEDS ORDERED: Chloraseptic Spray 180 ml Bottle PO PRN (07:27)
[2017-10-01] MEDS ORDERED: Eucerin (Mineral Oil/Petrolatum,White) 30 gm Jar TOP PRN (07:27)
[2017-10-01] MEDS ORDERED: Temazepam 15 MG CAP PO PRN (07:27)
[2017-10-01] MEDS ORDERED: Sodium Chloride 0.65% Nasal 44 ML BOT EA NARE PRN (07:27)
[2017-10-01] MEDS ORDERED: hydrALAZINE 20 MG/ML VIAL SLOW IVP PRN (07:27)
[2017-10-01] MEDS ORDERED: Ondansetron ODT 4 MG TAB PO PRN (07:27)
[2017-10-01] MEDS ORDERED: Senokot 8.6 MG TAB PO PRN (07:27)
[2017-10-01] MEDS ORDERED: Mag-Al 1200 mg/1200 mg/30 ML UDCUP PO PRN (07:27)
[2017-10-01] MEDS: Potassium Chloride 20 MEQ TAB PO SCH ×2 (08:06→16:39)
[2017-10-01] MEDS: Famotidine 20 MG TAB PO SCH ×2 (08:06→21:00)
[2017-10-01] MEDS ORDERED: cefTRIAXone\\ROCEPHIN 1 GM, Syringe 0.4 ML in Sterile Water 9.6 ML SLOW IVP SCH (09:00)
[2017-10-01] MEDS ORDERED: cefTRIAXone\\ROCEPHIN 1 GM in Sodium Chloride 0.9% 100 ML IVPB SCH (09:00)
--- NOTE | 2017-10-01 10:14 | PDOC.PN ---
- Subjective Encounter Start Date: 10/01/17 Encounter Start Time: 08:40 -: old records requested/rev pt is weak, has poor apatite, Patient seen and examined. No new complaints. No overnight events - Objective Resuscitation Status: Resuscitation Status FULL:Full Resuscitation MAR Reviewed: Yes Vital Signs & Weight: Vital Signs (12 hours) Temp Pulse Resp BP Pulse Ox 10/01/17 08:43 98.0 F 90 20 126/74 97 10/01/17 08:00 98.0 F 90 20 10/01/17 04:00 97.9 F 81 18 117/75 95 10/01/17 00:00 98.5 F 82 18 108/72 94 L Weight Weight 191 lb 1 oz I&O: 09/30/17 10/01/17 10/02/17 06:59 06:59 06:59 Intake Total 300 Balance 300 Result Diagrams: 10/01/17 04:22 10/01/17 04:22 Phys Exam - Physical Examination Constitutional: NAD HEENT: PERRLA, moist MMs, sclera anicteric Neck: no JVD, supple Respiratory: no wheezing, no rales, no rhonchi Cardiovascular: RRR, no significant murmur, no rub Gastrointestinal: soft, non-tender, no distention, positive bowel sounds Musculoskeletal: no edema, pulses present wound with dressing Neurological: non-focal, normal sensation Lymphatic: no nodes Psychiatric: normal affect, A&O x 3 Skin: no rash, normal turgor Dx/Plan (1) Encephalopathy acute Code(s): G93.40 - ENCEPHALOPATHY, UNSPECIFIED Status: Acute (2) Anemia, normocytic normochromic Code(s): D64.9 - ANEMIA, UNSPECIFIED Status: Acute (3) Hypokalemia Code(s): E87.6 - HYPOKALEMIA Status: Acute (4) Physical deconditioning Code(s): R53.81 - OTHER MALAISE Status: Acute (5) UTI (urinary tract infection) Status: Acute Qualifiers: (6) H/O deep venous thrombosis Code(s): Z86.718 - PERSONAL HISTORY OF OTHER VENOUS THROMBOSIS AND EMBOLISM Status: Chronic (7) HTN (hypertension) Code(s): I10 - ESSENTIAL (PRIMARY) HYPERTENSION Status: Chronic - Plan cont current plan of care, PT/OT * pt's AMS is resolved and now baseline. * continue rocephin and follow on culture result * start selected home meds * wound care * start PT/OT * medication reviewed as below * symptomatic treatment Review of Systems - Review of Systems Constitutional: Weakness. negative: Fever, Chills, Sweats, Malaise, Other ENT: negative: Ear Pain, Ear Discharge, Nose Pain, Nose Discharge, Nose Congestion, Mouth Pain, Mouth Swelling, Throat Pain, Throat Swelling, Other Respiratory: negative: Cough, Dry, Shortness of Breath, Hemoptysis, SOB with Excertion, Pleuritic Pain, Sputum, Wheezing Cardiovascular: negative: Chest Pain, Palpitations, Orthopnea, Paroxysmal Noc. Dyspnea, Edema, Light Headedness, Other Gastrointestinal: negative: Nausea, Vomiting, Abdominal Pain, Diarrhea, Constipation, Melena, Hematochezia, Other Genitourinary: negative: Dysuria, Frequency, Incontinence, Hematuria, Retention , Other Musculoskeletal: negative: Neck Pain, Shoulder Pain, Arm Pain, Back Pain, Hand Pain, Leg Pain, Foot Pain, Other - Medications/Allergies Allergies/Adverse Reactions: Allergies Allergy/AdvReac Type Severity Reaction Status Date / Time No Known Allergies Allergy Verified 05/19/17 14:00 Medications: Current Medications Acetaminophen (Tylenol) 650 mg PO Q4H PRN PRN Reason: Headache/Fever or Pain Hydrocodone Bitart/Acetaminophen ([place] 5/325) 1 tab PO Q4H PRN PRN Reason: Moderate Pain (4-6) Al Hydroxide/Mg Hydroxide (Maalox) 15 ml PO Q4H PRN PRN Reason: Heartburn or Indigestion Artificial Tears (Tears Naturale) 0 drop EA EYE PRN PRN PRN Reason: Dry Eyes Famotidine (Pepcid) 20 mg PO BID [facility] Last Admin: 10/01/17 08:06 Dose: 20 mg Guaifenesin (Robitussin Sf) 200 mg PO Q4H PRN PRN Reason: Cough Hydralazine HCl (Apresoline) 10 mg SLOW IVP Q4H PRN PRN Reason: Systolic BP > 180 Ceftriaxone Sodium 1 gm/ (Syringe 0.4 ml/ Sterile Water) 10 mls @ 120 mls/hr SLOW IVP Q24HR [facility] Stop: 10/03/17 23:59 Last Admin: 10/01/17 08:06 Dose: 10 mls Loperamide HCl (Imodium) 2 mg PO PRN PRN PRN Reason: Diarrhea/Loose Stools Loratadine (Claritin) 10 mg PO DAILYPRN PRN PRN Reason: Sinus Symptoms Magnesium Hydroxide (Milk Of Magnesium) 30 ml PO DAILYPRN PRN PRN Reason: Constipation Mineral Oil/White Petrolatum (Eucerin Cream) 0 gm TOP BIDPRN PRN PRN Reason: Dry Skin Ondansetron HCl (Zofran) 4 mg IVP Q6H PRN PRN Reason: Nausea/Vomiting Ondansetron HCl (Zofran Odt) 4 mg PO Q6H PRN PRN Reason: Nausea/Vomiting Phenol (Chloraseptic [place] 180 Ml Bot) 0 ml PO PRN PRN PRN Reason: Sore Throat Potassium Chloride (K-Dur) 40 meq PO BID-[facility] Last Admin: 10/01/17 08:06 Dose: 40 meq Senna (Senokot) 2 tab PO HSPRN PRN PRN Reason: Constipation Sodium Chloride ([place] Nasal [place] 0.65%) 0 ml EA NARE QIDPRN PRN PRN Reason: Nasal Congestion Sodium Chloride (Flush - Normal Saline) 10 ml IVF Q12HR [facility] Last Admin: 10/01/17 08:06 Dose: 10 ml Sodium Chloride (Flush - Normal Saline) 10 ml IVF PRN PRN PRN Reason: Saline Flush Temazepam (Restoril) 15 mg PO HSPRN PRN PRN Reason: Insomnia
--- NOTE | 2017-10-01 13:28 | CON ---
DATE OF CONSULTATION: 10/01/2017 REASON FOR CONSULTATION: Left leg wound. HISTORY OF PRESENT ILLNESS: This is an 87-year-old patient with a history of hypertension, who had b een admitted at the beginning of August of this year when she sustained an injury to the left leg a fter being stuck in her recliner with development of inflammatory changes of the left lower extremity . She received home health care, but developed chills and anorexia. Arrived at the emergency room h ypotensive and was given IV fluids. Her temperature was elevated at 101. She was given vancomycin a nd Zosyn with improvement in inflammatory changes. Blood cultures were negative. Wound care was con sulted. I do not see any cultures from the wounds that were observed in her leg. It does not look l christine any specimens were submitted. Eventually discharged on Keflex and doxycycline. She is readmitte d this time with weakness and anorexia. She had some dyspnea as well. No headaches, no visual sympt oms. No chest pain, no cough or sputum production. No abdominal pain. Voiding without difficulty. No diarrhea, not much pain in the lower extremities. PAST MEDICAL HISTORY: Hypertension, mild dementia, injury to the left leg with 2 small round wounds with cellulitis around it. According to the recent admission note from August, treated successfull y with broad-spectrum coverage and then converted to Keflex. PAST SURGICAL HISTORY: Appendectomy, right hip fixation following fracture. SOCIAL HISTORY: Lives alone. Never smoker. MEDICATIONS: Currently on Claritin, Eucerin, Zofran, and had been still on ceftriaxone. ALLERGIES: None. PHYSICAL EXAMINATION: VITAL SIGNS: Temperature has been normal. Other vital signs are normal, O2 sat 94%. GENERAL: Appears in no distress. SKIN: Exam shows the two 0.5 cm wounds, round-shaped, side by side in the anterior portion of the di stal left leg, mild hyperpigmentation and mild hyperemia of the skin surrounding it. There is eviden ce of stasis dermatitis. No lymphadenopathy. HEENT: Ocular movements are conjugate. Sclerae white. Pupils are equal. Oral cavity moist. Numer ous teeth in place. NECK: Supple. LUNGS: With symmetric clear breath sounds. HEART: S1, S2, regular rate. No S3 or S4. ABDOMEN: Soft, not distended or tender. No ascites. No bladder distention. EXTREMITIES: Pulses are 1+ in dorsalis pedis. NEUROLOGIC: There is evidence of stasis dermatitis. LABORATORY: White cell count 8.8 and 7.3, hemoglobin 10.2, platelets 278. Chemistry was not remarka ble except for hypokalemia. Urinalysis fairly normal, 0-3 wbcs. Two sets of blood cultures negative . ASSESSMENT: Hypertension and mobility impairment due to osteoarthrosis and prior hip fracture and a recent admission for an inflammatory process, left leg, which seems to have improved. DISCUSSION: The prior episode of cellulitis has resolved and the patient should continue on with wou nd care only and compression stockings to the extremities or other compression device. Check a venou s ultrasound to rule out deep vein thrombosis.
--- NOTE | 2017-10-01 16:27 | ULT ---
BILATERAL LOWER EXTREMITY VENOUS DOPPLER ULTRASOUND: DATE: 10/01/17. HISTORY: Pain, swelling, edema, assess for DVT. TECHNIQUE: Multiplanar, west scale, sonographic imaging of bilateral lower extremities obtained with color flow and spectral analysis. FINDINGS: Bilateral common femoral veins, greater saphenous veins, profunda femoral veins, femoral veins, popli teal veins, and posterior tibial veins are patent. There is normal blood flow, augmentation, and com pression within the deep venous system bilaterally. No evidence for DVT is seen on either side. IMPRESSION: No evidence for deep venous thrombosis of either lower extremity. POS: [facility]
[2017-10-02] MEDS: Potassium Chloride 20 MEQ TAB PO SCH ×2 (08:09→17:40)
[2017-10-02] MEDS: Famotidine 20 MG TAB PO SCH ×2 (08:10→20:01)
--- NOTE | 2017-10-02 12:24 | PDOC.PN ---
- Subjective Encounter Start Date: 10/02/17 Encounter Start Time: 08:45 Patient seen and examined. No new complaints. No overnight events - Objective Resuscitation Status: Resuscitation Status FULL:Full Resuscitation MAR Reviewed: Yes Vital Signs & Weight: Vital Signs (12 hours) Temp Pulse Resp BP Pulse Ox 10/02/17 08:00 97.4 F L 94 16 111/73 97 10/02/17 06:24 98.0 F 88 16 113/68 95 Weight Admit Weight 191 lb Weight 191 lb I&O: 10/01/17 10/02/17 10/03/17 06:59 06:59 06:59 Intake Total 300 360 Balance 300 360 Result Diagrams: 10/01/17 04:22 10/01/17 04:22 Phys Exam - Physical Examination Constitutional: NAD HEENT: PERRLA, moist MMs, sclera anicteric Neck: no JVD, supple Respiratory: no wheezing, no rales, no rhonchi Cardiovascular: RRR, no significant murmur, no rub Gastrointestinal: soft, non-tender, no distention, positive bowel sounds Musculoskeletal: no edema, pulses present Neurological: non-focal, normal sensation, moves all 4 limbs Lymphatic: no nodes Psychiatric: normal affect, A&O x 3 Skin: no rash, normal turgor Dx/Plan (1) Encephalopathy acute Code(s): G93.40 - ENCEPHALOPATHY, UNSPECIFIED Status: Acute (2) Anemia, normocytic normochromic Code(s): D64.9 - ANEMIA, UNSPECIFIED Status: Acute (3) Hypokalemia Code(s): E87.6 - HYPOKALEMIA Status: Acute (4) Physical deconditioning Code(s): R53.81 - OTHER MALAISE Status: Acute (5) UTI (urinary tract infection) Status: Acute Qualifiers: (6) H/O deep venous thrombosis Code(s): Z86.718 - PERSONAL HISTORY OF OTHER VENOUS THROMBOSIS AND EMBOLISM Status: Chronic (7) HTN (hypertension) Code(s): I10 - ESSENTIAL (PRIMARY) HYPERTENSION Status: Chronic - Plan cont current plan of care, PT/OT, medical social consultant * continue PT/OT * pt will need SNU on discharge * medication reviewed as below * symptomatic treatment * will give oral cipro for UTI * expecting discharge tomorrow. Review of Systems - Review of Systems ENT: negative: Ear Pain, Ear Discharge, Nose Pain, Nose Discharge, Nose Congestion, Mouth Pain, Mouth Swelling, Throat Pain, Throat Swelling, Other Respiratory: negative: Cough, Dry, Shortness of Breath, Hemoptysis, SOB with Excertion, Pleuritic Pain, Sputum, Wheezing Cardiovascular: negative: Chest Pain, Palpitations, Orthopnea, Paroxysmal Noc. Dyspnea, Edema, Light Headedness, Other Gastrointestinal: negative: Nausea, Vomiting, Abdominal Pain, Diarrhea, Constipation, Melena, Hematochezia, Other Genitourinary: negative: Dysuria, Frequency, Incontinence, Hematuria, Retention , Other Musculoskeletal: negative: Neck Pain, Shoulder Pain, Arm Pain, Back Pain, Hand Pain, Leg Pain, Foot Pain, Other - Medications/Allergies Allergies/Adverse Reactions: Allergies Allergy/AdvReac Type Severity Reaction Status Date / Time No Known Allergies Allergy Verified 05/19/17 14:00 Medications: Current Medications Acetaminophen (Tylenol) 650 mg PO Q4H PRN PRN Reason: Headache/Fever or Pain Hydrocodone Bitart/Acetaminophen ([place] 5/325) 1 tab PO Q4H PRN PRN Reason: Moderate Pain (4-6) Al Hydroxide/Mg Hydroxide (Maalox) 15 ml PO Q4H PRN PRN Reason: Heartburn or Indigestion Artificial Tears (Tears Naturale) 0 drop EA EYE PRN PRN PRN Reason: Dry Eyes Famotidine (Pepcid) 20 mg PO BID MEGHNA Last Admin: 10/02/17 08:10 Dose: 20 mg Guaifenesin (Robitussin Sf) 200 mg PO Q4H PRN PRN Reason: Cough Hydralazine HCl (Apresoline) 10 mg SLOW IVP Q4H PRN PRN Reason: Systolic BP > 180 Loperamide HCl (Imodium) 2 mg PO PRN PRN PRN Reason: Diarrhea/Loose Stools Loratadine (Claritin) 10 mg PO DAILYPRN PRN PRN Reason: Sinus Symptoms Magnesium Hydroxide (Milk Of Magnesium) 30 ml PO DAILYPRN PRN PRN Reason: Constipation Mineral Oil/White Petrolatum (Eucerin Cream) 0 gm TOP BIDPRN PRN PRN Reason: Dry Skin Ondansetron HCl (Zofran) 4 mg IVP Q6H PRN PRN Reason: Nausea/Vomiting Last Admin: 10/01/17 21:01 Dose: 4 mg Ondansetron HCl (Zofran Odt) 4 mg PO Q6H PRN PRN Reason: Nausea/Vomiting Phenol (Chloraseptic [place] 180 Ml Bot) 0 ml PO PRN PRN PRN Reason: Sore Throat Potassium Chloride (K-Dur) 40 meq PO BID-[facility] Last Admin: 10/02/17 08:09 Dose: 40 meq Senna (Senokot) 2 tab PO HSPRN PRN PRN Reason: Constipation Sodium Chloride ([place] Nasal [place] 0.65%) 0 ml EA NARE QIDPRN PRN PRN Reason: Nasal Congestion Sodium Chloride (Flush - Normal Saline) 10 ml IVF Q12HR [facility] Last Admin: 10/02/17 08:16 Dose: 10 ml Sodium Chloride (Flush - Normal Saline) 10 ml IVF PRN PRN PRN Reason: Saline Flush Temazepam (Restoril) 15 mg PO HSPRN PRN PRN Reason: Insomnia
[2017-10-03] MEDS: Famotidine 20 MG TAB PO SCH (08:03)
[2017-10-03] MEDS: Potassium Chloride 20 MEQ TAB PO SCH ×2 (08:03→16:36)
[2017-10-03 08:54] VITALS: BP 121/62; TEMP 98
--- NOTE | 2017-10-03 11:17 | PDOC.PN ---
- Subjective Encounter Start Date: 10/03/17 Encounter Start Time: 08:45 Patient seen and examined. No new complaints. No overnight events - Objective Resuscitation Status: Resuscitation Status FULL:Full Resuscitation MAR Reviewed: Yes Vital Signs & Weight: Vital Signs (12 hours) Temp Pulse Resp BP Pulse Ox 10/03/17 08:03 98.0 F 76 16 121/62 98 10/03/17 08:00 98.1 F 79 16 97 Weight Admit Weight 191 lb Weight 191 lb I&O: 10/02/17 10/03/17 10/04/17 06:59 06:59 06:59 Intake Total 360 240 Balance 360 240 Result Diagrams: 10/01/17 04:22 10/01/17 04:22 Phys Exam - Physical Examination Constitutional: NAD HEENT: PERRLA, moist MMs, sclera anicteric Neck: no JVD, supple Respiratory: no wheezing, no rales, no rhonchi Cardiovascular: RRR, no significant murmur, no rub Gastrointestinal: soft, non-tender, no distention, positive bowel sounds Musculoskeletal: no edema, pulses present Neurological: non-focal, normal sensation, moves all 4 limbs Lymphatic: no nodes Psychiatric: normal affect Skin: no rash, normal turgor Dx/Plan (1) Encephalopathy acute Code(s): G93.40 - ENCEPHALOPATHY, UNSPECIFIED Status: Acute (2) Anemia, normocytic normochromic Code(s): D64.9 - ANEMIA, UNSPECIFIED Status: Acute (3) Hypokalemia Code(s): E87.6 - HYPOKALEMIA Status: Acute (4) Physical deconditioning Code(s): R53.81 - OTHER MALAISE Status: Acute (5) UTI (urinary tract infection) Status: Acute Qualifiers: (6) H/O deep venous thrombosis Code(s): Z86.718 - PERSONAL HISTORY OF OTHER VENOUS THROMBOSIS AND EMBOLISM Status: Chronic (7) HTN (hypertension) Code(s): I10 - ESSENTIAL (PRIMARY) HYPERTENSION Status: Chronic - Plan cont current plan of care, PT/OT, social service manager * medically stable with current treatment * medication reviewed as below * symptomatic treatment * will discharge when SNU arranged. Review of Systems - Review of Systems ENT: negative: Ear Pain, Ear Discharge, Nose Pain, Nose Discharge, Nose Congestion, Mouth Pain, Mouth Swelling, Throat Pain, Throat Swelling, Other Respiratory: negative: Cough, Dry, Shortness of Breath, Hemoptysis, SOB with Excertion, Pleuritic Pain, Sputum, Wheezing Cardiovascular: negative: Chest Pain, Palpitations, Orthopnea, Paroxysmal Noc. Dyspnea, Edema, Light Headedness, Other Gastrointestinal: negative: Nausea, Vomiting, Abdominal Pain, Diarrhea, Constipation, Melena, Hematochezia, Other Genitourinary: negative: Dysuria, Frequency, Incontinence, Hematuria, Retention , Other Musculoskeletal: negative: Neck Pain, Shoulder Pain, Arm Pain, Back Pain, Hand Pain, Leg Pain, Foot Pain, Other - Medications/Allergies Allergies/Adverse Reactions: Allergies Allergy/AdvReac Type Severity Reaction Status Date / Time No Known Allergies Allergy Verified 05/19/17 14:00 Medications: Current Medications Acetaminophen (Tylenol) 650 mg PO Q4H PRN PRN Reason: Headache/Fever or Pain Hydrocodone Bitart/Acetaminophen ([place] 5/325) 1 tab PO Q4H PRN PRN Reason: Moderate Pain (4-6) Al Hydroxide/Mg Hydroxide (Maalox) 15 ml PO Q4H PRN PRN Reason: Heartburn or Indigestion Artificial Tears (Tears Naturale) 0 drop EA EYE PRN PRN PRN Reason: Dry Eyes Famotidine (Pepcid) 20 mg PO BID MEGHNA Last Admin: 10/03/17 08:03 Dose: 20 mg Guaifenesin (Robitussin Sf) 200 mg PO Q4H PRN PRN Reason: Cough Hydralazine HCl (Apresoline) 10 mg SLOW IVP Q4H PRN PRN Reason: Systolic BP > 180 Loperamide HCl (Imodium) 2 mg PO PRN PRN PRN Reason: Diarrhea/Loose Stools Loratadine (Claritin) 10 mg PO DAILYPRN PRN PRN Reason: Sinus Symptoms Magnesium Hydroxide (Milk Of Magnesium) 30 ml PO DAILYPRN PRN PRN Reason: Constipation Mineral Oil/White Petrolatum (Eucerin Cream) 0 gm TOP BIDPRN PRN PRN Reason: Dry Skin Ondansetron HCl (Zofran) 4 mg IVP Q6H PRN PRN Reason: Nausea/Vomiting Last Admin: 10/01/17 21:01 Dose: 4 mg Ondansetron HCl (Zofran Odt) 4 mg PO Q6H PRN PRN Reason: Nausea/Vomiting Phenol (Chloraseptic [place] 180 Ml Bot) 0 ml PO PRN PRN PRN Reason: Sore Throat Potassium Chloride (K-Dur) 40 meq PO BID-[facility] Last Admin: 10/03/17 08:03 Dose: 40 meq Senna (Senokot) 2 tab PO HSPRN PRN PRN Reason: Constipation Sodium Chloride ([place] Nasal [place] 0.65%) 0 ml EA NARE QIDPRN PRN PRN Reason: Nasal Congestion Sodium Chloride (Flush - Normal Saline) 10 ml IVF Q12HR [facility] Last Admin: 10/03/17 08:04 Dose: 10 ml Sodium Chloride (Flush - Normal Saline) 10 ml IVF PRN PRN PRN Reason: Saline Flush Temazepam (Restoril) 15 mg PO HSPRN PRN PRN Reason: Insomnia
--- NOTE | 2017-10-03 13:45 | DIS ---
DATE OF ADMISSION: 09/30/2017 DATE OF DISCHARGE: 10/03/2017 PRIMARY CARE PHYSICIAN: [facility] call admission. DISCHARGE DISPOSITION: snf home. PRIMARY DISCHARGE DIAGNOSES: 1. Acute encephalopathy, resolved. 2. Hypokalemia, corrected. 3. Urinary tract infection. SECONDARY DISCHARGE DIAGNOSES: Anemia, normocytic normochromic, physical deconditioning, history of deep venous thrombosis, and hypertension. PRIMARY PROCEDURE/OPERATION: None. RADIOLOGICAL INVESTIGATION: CT brain normal. Ultrasound negative for any DVT. SIGNIFICANT LABORATORY DATA: WBC 7.3, hemoglobin 10.2, platelet 278. Sodium 141, potassium 3.5, BUN 14, creatinine 0.91, calcium 8.4. LFTs normal. Cardiac enzymes negative. Urinalysis suggestive of UTI. Blood culture negative. DISCHARGE MEDICATIONS: Cipro 250 mg p.o. b.i.d. for 5 days, Pepcid 20 mg p.o. b.i.d., ferrous sulfat e 325 mg p.o. daily, multivitamin 1 tablet p.o. daily. CONTRAINDICATIONS: None. CODE STATUS: FULL CODE. INPATIENT RESAW OPERATOR: Dr. Nunez was consulted while in hospital. TEST RESULTS PENDING ON DISCHARGE: None. ALLERGIES: No known drug allergy. DISCHARGE PLAN: Post hospital, patient will follow up with primary care physician. HOSPITAL COURSE: An 87-year-old female who was admitted by Dr. Berhane Mckee. Please see his H&P for further details. The patient was admitted on 09/30/2017 for complaint of altered mental status and generalized weakness. In the emergency room, CT brain was negative for any acute intracranial proces s. She was found with urinary tract infection. She was also suspected for cellulitis in [facility]. We did ultrasound and ruled out DVT. We consulted Dr. Nunez and he was not thinking that this patient has cellulitis and it was related with venous insufficiency and he recommended venous compre ssion stockings. The patient had urinalysis suggestive of UTI that is why we treated her with Cipro. Rest of medication was continued as above. This patient has physical weakness and that is why she was requiring placement and with the help of c ase manager performance, we arranged for fpc home. Today, I spoke with the clinical case manager and arranged fpc home. Review of systems reviewed w ith the patient and negative. Paperwork for discharge done. Discharge medication reconciliation don e. The patient is seen and examined at bedside today. Please see my progress note from today for furthe r details. Total time spent to arrange to her discharge is 31 minutes.
== END 2017-10-03 18:12 | DRG 689 ==
LOC: SCSER 10:22 → T4-A 14:17
PROVIDERS: ADMIT Internal Medicine Addiction Medicine; ATTEND Internal Medicine Addiction Medicine
DX: N39.0 Urinary tract infection, site not specified (principal); G93.40 Encephalopathy, unspecified; D64.9 Anemia, unspecified; F03.90 Unspecified dementia, unspecified severity, without behavioral disturbance, psychotic disturbance, mood disturbance, and anxiety; E87.6 Hypokalemia; S81.802D Unspecified open wound, left lower leg, subsequent encounter; Z23 Encounter for immunization; Z86.718 Personal history of other venous thrombosis and embolism; I10 Essential (primary) hypertension; I87.2 Venous insufficiency (chronic) (peripheral); Z99.3 Dependence on wheelchair; Z87.440 Personal history of urinary (tract) infections; M19.90 Unspecified osteoarthritis, unspecified site
CPT/HCPCS: 36415; 70450; 80048; 80053; 81003; 81015; 82553; 84484; 85025; 87040; 90471; 90732; 93970; 96361; 96374; A4216; G0009; G8978-GP-CK; G8979-GP-CI; G8987-GO-CK; G8988-GO-CJ; J0696; J2405; J7050

== ENCOUNTER 2018-11-25 15:04 | Observation (INO) | payer MEDICARE ==
--- NOTE | 2018-11-25 16:08 | RAD ---
PORTABLE AP CHEST: Date: 11/25/18 HISTORY: Altered mental status, confusion. COMPARISON: 09/05/17. FINDINGS: Cardiac silhouette is magnified by projection, but stable in size. Linear bibasilar densities are pre sent, likely related to either atelectasis and/or mild scarring. The lungs are otherwise clear. Thora cic aorta is partially calcified, tortuous, and ectatic. Osteopenia is present. IMPRESSION: 1. Atelectasis and/or scarring present at each lung base. 2. No acute cardiopulmonary process. 3. Osteopenia. POS: [facility]
--- NOTE | 2018-11-25 16:10 | CT ---
CT OF BRAIN PERFORMED WITHOUT CONTRAST ENHANCEMENT: Date: 11/25/18 HISTORY: Altered mental status. Weakness. COMPARISON: 09/30/17. FINDINGS: There is generalized ventricular and sulcal prominence. Decreased attenuation of the periventricular white matter is consistent with some chronic white matter change. No signs of intracerebral hemorrhag e or extra-axial fluid collections. Mastoid air cells and visualized sinuses are clear. IMPRESSION: No acute intracranial abnormalities. POS: [facility]
[2018-11-25 16:41] LABS: #Basophils 0.1 thou/uL (0.0-0.2); #Eosinphils 0.1 thou/uL (0.0-0.7); #Lymphocytes 1.8 thou/uL (1.20-3.40); #Monocytes 0.8 thou/uL (0.11-0.59); #Neutrophils 5.1 thou/uL (1.40-6.50); %Eosinophils 0.7 % (0.0-10.0); %Lymphocytes 23.5 % (21.0-51.0); %Monocytes 10.2 % (0.0-10.0); %Neutrophils 64.6 % (42.0-75.0); Hemoglobin 11.9 g/dL (12.0-16.0); Mean Corpuscular Hemoglobin 26.4 pg (27.0-31.0); Mean Platelet Volume 8.1 fL (7.4-10.4); Platelet Count 298 thou/uL (130-400); RBC Distribution Width 14.6 % (11.5-14.5); White Blood Cell (WBC) Count 7.8 thou/uL (4.8-10.8)
[2018-11-25 17:02] LABS: ALT (SGPT) Less than 7 U/L (8-55); AST (SGOT) 12 U/L (5-34); Acetaminophen Less than 6.0 mcg/mL (10.0-30.0); Alcohol Less than 10 mg/dL (Less than 10); Alkaline Phosphatase 59 U/L (40-150); Anion Gap 17 mmol/L (10-20); BUN (Urea Nitrogen) 15 mg/dL (9.8-20.1); Bilirubin, Total 0.2 mg/dL (0.2-1.2); Calc. Creatinine Clearance 0 mL/min (70-130); Calcium 9.5 mg/dL (7.8-10.44); Carbon Dioxide 24 mmol/L (23-31); Chloride 107 mmol/L (98-107); Estimated GFR-MDRD 62; Globulin 2.9 g/dL (2.4-3.5); Glucose 105 mg/dL (83-110); Potassium 3.6 mmol/L (3.5-5.1); Protein, Total 6.9 g/dL (6.0-8.3); Salicylate Less than 8.0 mg/dL (15.0-30.0); Sodium 144 mmol/L (136-145)
[2018-11-25 17:30] LABS: Bilirubin Negative (Negative); Blood, Urine Large (Negative); Clarity CLOUDY (Clear); Glucose, Urine (Dipstick) Negative (Negative); Leukocyte Trace (Negative); Nitrite Negative (Negative); Protein, Urine (Dipstick) Trace mg/dL (Neg-Trace); Specific Gravity, Urine 1.012 (1.002-1.036); Urobilinogen 0.2 mg/dL (0.2-1.0)
[2018-11-25 17:31] LABS: Bacteria/HPF Rare-Few HPF (None Seen); RBC/HPF 21-50 HPF (0-3); WBC/HPF 0-3 HPF (0-3)
[2018-11-25 17:33] LABS: Pathc Cast-AUWi Flag 3.77 (0-2.49)
[2018-11-25 17:48] LABS: Magnesium 2.2 mg/dL (1.6-2.6); Phosphorus 3.4 mg/dL (2.3-4.7)
[2018-11-25 17:48] LABS: Hyaline Casts/LPF 0-3 HYALINE CAST LPF (0-3 Hyaline); Other Casts/LPF None Seen LPF (0-3 Hyaline)
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
[2018-11-25] MEDS: cefTRIAXone\\ROCEPHIN 1 GM in Sodium Chloride 0.9% 100 ML IVPB SCH (23:08)
[2018-11-25 23:23] LABS: Syphilis Antibody Nonreactive (Nonreactive); Syphilis Antibody Index 0.06 S/CO (<1.00 Non-Reactive)
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
[2018-11-26] MEDS: cefTRIAXone\\ROCEPHIN 1 GM in Sodium Chloride 0.9% 100 ML IVPB SCH (00:12)
[2018-11-26 00:19] VITALS: BMI 27.9
[2018-11-26] MEDS ORDERED: Nystatin Powder 15 GM BOT TOP PRN (01:49)
[2018-11-26] MEDS ORDERED: Lactated Ringer's 1,000 ML IV SCH (07:15)
--- NOTE | 2018-11-26 07:26 | PDOC.FM ---
- Subjective Subjective: Pt reports pain lying in bed, would like to go to a chair. Nursing reports pt has declined moving to a chair all night. pt reports she was never ill and would like to go home. AOx2 delay in answering where she currently lives - Objective Vital Signs & Weight: Vital Signs (12 hours) Temp Pulse Resp BP Pulse Ox 11/26/18 04:32 98.1 F 72 18 123/66 96 11/26/18 00:00 97.5 F L 82 18 131/63 95 11/25/18 22:45 98.5 F 80 18 149/71 H 96 Weight Weight 80.881 kg Result Diagrams: 11/25/18 16:28 11/25/18 16:28 Phys Exam - Physical Examination Constitutional: NAD HEENT: moist MMs Neck: no nodes Respiratory: clear to auscultation bilateral Cardiovascular: RRR, no significant murmur Gastrointestinal: soft, non-tender Musculoskeletal: no edema, pulses present Neurological: moves all 4 limbs Psychiatric: normal affect Skin: no rash, normal turgor Dx/Plan (1) Anemia, normocytic normochromic Code(s): D64.9 - ANEMIA, UNSPECIFIED Status: Acute (2) Encephalopathy acute Code(s): G93.40 - ENCEPHALOPATHY, UNSPECIFIED Status: Acute (3) Physical deconditioning Code(s): R53.81 - OTHER MALAISE Status: Acute (4) UTI (urinary tract infection) Status: Acute Qualifiers: (5) H/O deep venous thrombosis Code(s): Z86.718 - PERSONAL HISTORY OF OTHER VENOUS THROMBOSIS AND EMBOLISM Status: Chronic (6) HTN (hypertension) Code(s): I10 - ESSENTIAL (PRIMARY) HYPERTENSION Status: Chronic - Plan Plan: Acute Encephalopathy - Afebrile, CXR and head CT nml, electrolytes including Mg, Phos nml, TSH nml. - UA with RBCs and trace leukocyte esterase, similar symptoms with UTI in past, presumptive treatment - Continue ceftriaxone, UCx pending - LR 120ml/hr, encourage PO intake - Consider MRI although pt has no focal deficits - Likely has underlying dementia and with recent illness and decreased PO intake has become volume depleted - Frequent reorientation and keep blinds opening during day to avoid superimposed delirium Vitamin B12 deficiency - replace Hx of DVT - Completed 3mo course of anticoagulation HTN - Holding lasix due to suspected volume depletion Venous stasis - Holding lasix as above Osteoarthritis - Uses wheelchair for ambulation Code Status: DNR DVT ppx: Lovenox dispo: continue to monitor on oncology, IVFs further workup of AMS Addendum - Attending - Attending Attestation Date/Time: 11/26/18 2883 I personally evaluated the patient and discussed the management with Dr. French I agree with the History, Examination, Assessment and Plan documented above with any addition or exceptions noted below - Patient without complaints. A&O x 2. Tolerating diet. Per caregiver- back to baseline. Afebrile VSS. A/P: 1) Suspected UTI- urine culture pending; will change to cipro and d/c home. No evidence of sepsis/systemic infection. 2) dehydration- resolved. D/c home.
[2018-11-26] MEDS ORDERED: Enoxaparin Sodium 40 MG/0.4 ML SYRINGE SC SCH (09:00)
[2018-11-26] MEDS ORDERED: Furosemide 40 MG TAB PO SCH (09:00)
[2018-11-26] MEDS ORDERED: Cyanocobalamin (Vitamin B-12) 1,000 MCG TAB PO SCH (09:00)
[2018-11-26 10:46] LABS: Iron Binding Capacity, Total 390 mcg/dL (265-497)
[2018-11-26 10:47] LABS: Iron 25 ug/dL (50-170)
[2018-11-26] MEDS ORDERED: Cipro 250 MG TAB PO SCH ×2 (12:00→20:00)
[2018-11-26 13:17] VITALS: BP 142/68; TEMP 98.7
[2018-11-26 13:34] LABS: HIV (1/2) Antibody/Antigen Non-Reactive (NonReactive); HIV 1/2 INDEX 0.07 S/CO (<1.00)
--- NOTE | 2018-11-27 08:38 | DIS ---
DATE OF ADMISSION: 11/25/2018 DATE OF DISCHARGE: 11/26/2018 RESIDENT: Mynor French DO ADMITTING ATTENDING: Preston Diaz MD DISCHARGE ATTENDING: Maddie Givens MD CONSULTS: None. PROCEDURES: None. IMAGIN. Chest x-ray significant for no acute cardiopulmonary process. 2. Brain CT, impression, no acute intracranial abnormalities. PRIMARY DIAGNOSES: 1. Altered mental status secondary to urinary tract infection. 2. Vitamin B12 deficiency. SECONDARY DIAGNOSES: 1. History of deep vein thrombosis. 2. Hypertension. 3. Venous stasis. 4. Osteoarthritis. DISCHARGE MEDICATIONS: 1. Lasix 40 mg p.o. q.a.m. 2. Cipro 250 mg p.o. b.i.d. 3. Vitamin B12 of 1000 mcg p.o. daily. Discontinued medications: None. HISTORY OF PRESENT ILLNESS/HOSPITAL COURSE: Ms. Ramirez is an 88-year-old female, who presents to the emergency department at the instruction of her friend for altered mental status. She lives in an apartment here in town with her friend and she reports that for the last day, she has had increasing confusion and difficulty with activities of daily living. She reports that the last time this happened about a year ago. She was admitted to the hospital with a UTI and treated for that. The patient's vital signs were stable at that time and remained stable. The patient recovered to baseline mental status per friend quickly during the hospitalization. The patient was adequately fluid resuscitated and began on antibiotics that were successful in treating her last UTI. The patient was determined to be a good candidate for followup in our clinic and instructions were given. Antibiotics were sent to make this possible. The patient and caregiver agreed and were in favor of this plan. DISPOSITION: Stable. DISCHARGE INSTRUCTIONS: 1. Location: Home with home health. The patient and caregiver went to attempt to increase hours that home health is available. 2. Diet: Regular. 3. Activity: As tolerated. 4. Followup: Follow up with [facility], established a PCP in the next 3 days. Job ID: [id number]
== END 2018-11-26 14:05 | disposition home or self-care (01) ==
LOC: ERS 15:04 → ERHOLD 18:27 → ONC 23:12
PROVIDERS: ADMIT Family Medicine; ATTEND Family Medicine
DX: N39.0 Urinary tract infection, site not specified (principal); B96.1 Klebsiella pneumoniae [K. pneumoniae] as the cause of diseases classified elsewhere; R41.82 Altered mental status, unspecified; E53.8 Deficiency of other specified B group vitamins; I10 Essential (primary) hypertension; I47.1 Supraventricular tachycardia; M17.9 Osteoarthritis of knee, unspecified; M81.0 Age-related osteoporosis without current pathological fracture; R53.81 Other malaise; D64.9 Anemia, unspecified; Z86.718 Personal history of other venous thrombosis and embolism; Z79.899 Other long term (current) drug therapy; Z66 Do not resuscitate
CPT/HCPCS: 70450; 71045; 80307; 82607; 82728; 82746; 83540; 83550; 83605; 83735; 83880; 84100; 84145; 84484; 86780; 87077; 87086; 87186; 87205; 87389; 93005; 96365; 96372; 99285; G0378 ×2; 36415; 80053; 81003; 81015; 84443; 85025; J0696; J1650; J7050